=== PATIENT | male | born 1980 | race Caucasian/White ===

== ENCOUNTER 2016-08-05 19:36 | Emergency (ER) | payer OTHER ==
[2016-08-05 19:36] VITALS: BMI 41.3
== END 2016-08-05 20:15 | disposition left against medical advice (07) ==
LOC: ED 19:36
DX: Z53.21 Procedure and treatment not carried out due to patient leaving prior to being seen by health care provider (principal)

== ENCOUNTER 2016-08-07 15:53 | Emergency (ER) | payer OTHER ==
[2016-08-07 15:54] VITALS: BMI 41.3
[2016-08-07 16:17] VITALS: TEMP 97.7
[2016-08-07 16:50] LABS: AUTOMATED BASOPHIL 1.2 % (0-2); AUTOMATED EOSINOPHIL 2.3 % (0-5); AUTOMATED LYMPH 30.8 % (17-44); AUTOMATED MONOCYTE 7.6 % (3-10); AUTOMATED NEUTROPHIL 58.1 % (45-76); MPV 8.2 fL (7.4-10.4)
[2016-08-07 16:54] LABS: BLOOD UREA NITROGEN 12 MG/DL (9-20); CALCIUM 10.2 MG/DL (8.4-10.2); CALCULATED OSMOLALITY 270 MOs/Kg (270-290); CHLORIDE 103 mEq/L (98-107); GLUCOSE 111 MG/DL (70-99); SODIUM LEVEL 140 mEq/L (137-146); TOTAL PROTEIN 8.5 G/DL (6.3-8.2)
[2016-08-07 16:56] LABS: PARTIAL THROMB. TIME 32.1 SEC (22-35)
--- NOTE | 2016-08-07 18:29 | DIRPT ---
CLINICAL DATA: Chest pain, presumed cardiac EXAM: PORTABLE CHEST 1 VIEW COMPARISON: None. FINDINGS: Normal mediastinum and cardiac silhouette. Normal pulmonary vasculature. No evidence of effusion, infiltrate, or pneumothorax. No acute bony abnormality. IMPRESSION: No acute cardiopulmonary process. Electronically Signed By: Tomer Kaur M.D. On: 08/07/2016 18:13
--- NOTE | 2016-08-07 19:00 | EDPRACDOC ---
- General Information Chief Complaint: Chest Pain Stated Complaint: PRESSURE CP & INTO LT ARM Time Seen by Provider: 08/07/16 18:41 Information Source: Patient Mode of Arrival: Car Home Medications: Home Medications No Home Medications 08/07/16 Allergies/Adverse Reactions: Allergies Allergy/AdvReac Type Severity Reaction Status Date / Time No Known Allergies Allergy Verified 08/07/16 16:13 - History of Present Illness Onset: 1 day HPI: c/o intermittent mid sternal cp x 1 day with sob, nausea, dizzyness, shooting pain into left arm and jaw, worse with movement, better with rest. Pain is associated with anxiety and /or movement, non reproducible, described as sharp, lasts mins. Denies fever, vomiting, diarrhea, cough, sore throat, chnages in urine or BM. Med hx = HTN. + smoker, - Fam hx of cardiac dz. Chest Pain Location: Reports: Substernal Pain Radiation: Reports: Jaw (left), Arm (L) Symptoms Occur: Reports: Suddenly, With light exertion Cardiac Risk Factors: Reports: Smoker, Hypertension Cardiac History of: Reports: Similar Pain in Past, Stress Test ("around 4 yrs ago") PE Risk Factors: Reports: None Medications within 24 Hours: Reports: None Prehospital Care: Reports: None Pain Came On: Reports: Suddenly Pain Status: No Pain Pain Description: Reports: Sharp Pain Severity: None Pain Worsens With: Reports: Exertion, Movement Pain Improves With: Reports: Rest Associated Signs and Symptoms: Reports: SOB, Nausea ED Past Medical History - History Reviewed Yes Nurses notes reviewed and agree except as marked - Patient Medical History Cardiac History: Reports: Hypertension, Hypercholesterolemia Psychological History: Denies: Depression Surgical History: Reports: Cholecystectomy, Tonsillectomy/Adnoidectomy ( [facility] ONLY) - Social Medical History Smoking Status: Former smoker EDM Review of Systems - Review of Systems ROS Negative Except as Marked: Yes All systems reviewed and were negative except as marked Respiratory: Shortness of Breath Cardiovascular: Chest Pain - Physical Exam Constitutional: No apparent distress, Alert Oriented to: Time, Person, Place Last recorded Vital Signs: Last Vital Signs Temp 97.7 F 08/07/16 16:13 Pulse 83 08/07/16 16:45 Resp 18 08/07/16 16:16 BP 151/88 08/07/16 16:16 Pulse Ox 97 08/07/16 16:16 Oxygen Pulse Oxygen Saturation 97 O2 Device Room Air Oxygen Flow Rate Fraction of Inspired Oxygen ( FIO2) - HEENT Head: Normal Eye Exam: negative: Conjunctival Injection, Scleral Icterus Oropharynx: negative: Drooling TMJ: Normal Nose: No Symptoms Reported Neck: Normal - Respiratory/Cardiovascular Respiratory: Normal - CTA Cardiovascular: Normal - GI Auscultation: Normal Palpation: Normal Tenderness: Non tender - Musculoskeletal Back: Normal Extremities: Normal - Integumentary Skin: Normal - Neurologic Mood Description: Normal Thought: Coherent Perception: Normal ED Chest Pain Exam - Respiratory/Cardiovascular Respiratory: Normal - CTA Cardiovascular/Chest: Normal Radial Pulse: Normal Pedal Pulse: Normal Edema: negative: 1+, 2+, 3+, 4+, 5, 6 Chest Palpation: Normal - Action ASA given in the ED: No - Results 08/07/16 16:15 08/07/16 16:15 WBC 12.3 xk/uL (3.8-10.8) H 08/07/16 16:15 RBC 6.52 xM/uL (4.70-6.10) H 08/07/16 16:15 Hgb 18.7 g/dL (14.0-18.0) H 08/07/16 16:15 Hct 55.6 % (42-52) H 08/07/16 16:15 MCV 85 fL (80-94) 08/07/16 16:15 MCH 28.7 pg (27-32) 08/07/16 16:15 MCHC 33.7 g/dl (33-36) 08/07/16 16:15 RDW 14.1 % (11.5-14.5) 08/07/16 16:15 Plt Count 352 xk/uL (130-400) 08/07/16 16:15 MPV 8.2 fL (7.4-10.4) 08/07/16 16:15 Neut % (Auto) 58.1 % (45-76) 08/07/16 16:15 Lymph % (Auto) 30.8 % (17-44) 08/07/16 16:15 Robeson % (Auto) 7.6 % (3-10) 08/07/16 16:15 Eos % (Auto) 2.3 % (0-5) 08/07/16 16:15 Baso % (Auto) 1.2 % (0-2) 08/07/16 16:15 Absolute Neuts (auto) 7.13 xk/uL (1.7-8.2) 08/07/16 16:15 Absolute Lymphs (auto) 3.69 xk/uL (0.65-4.75) 08/07/16 16:15 PT 10.4 SEC (9.2-11.2) 08/07/16 16:15 INR 1.0 08/07/16 16:15 APTT 32.1 SEC (22-35) 08/07/16 16:15 Sodium 140 mEq/L (137-146) 08/07/16 16:15 Potassium 3.9 mEq/L (3.5-5.1) 08/07/16 16:15 Chloride 103 mEq/L (98-107) 08/07/16 16:15 Carbon Dioxide 23 mMOL/L (22-33) 08/07/16 16:15 Anion Gap 18 mEq/L (8-16) H 08/07/16 16:15 BUN 12 MG/DL (9-20) 08/07/16 16:15 Creatinine 0.90 MG/DL (0.66-1.25) 08/07/16 16:15 Estimated GFR (MDRD) > 60 mL/min (>=60) 08/07/16 16:15 Glucose 111 MG/DL (70-99) H 08/07/16 16:15 Calculated Osmolality 270 MOs/Kg (270-290) 08/07/16 16:15 Calcium 10.2 MG/DL (8.4-10.2) 08/07/16 16:15 Total Bilirubin 0.9 MG/DL (0.2-1.3) 08/07/16 16:15 AST 36 IU/L (17-59) 08/07/16 16:15 ALT 70 IU/L (21-72) 08/07/16 16:15 Alkaline Phosphatase 68 IU/L (38-126) 08/07/16 16:15 Troponin I 0.01 ng/mL (<.04) 08/07/16 16:15 Oia-H-Fpkhwfhdutb Pept 44 pg/mL (0-450) 08/07/16 16:15 Total Protein 8.5 G/DL (6.3-8.2) H 08/07/16 16:15 Albumin 4.8 G/DL (3.5-5.0) 08/07/16 16:15 Lab Results 08/07/16 08/07/16 08/07/16 16:15 16:15 16:15 WBC 12.3 H RBC 6.52 H Hgb 18.7 H Hct 55.6 H MCV 85 MCH 28.7 MCHC 33.7 RDW 14.1 Plt Count 352 MPV 8.2 Neut % (Auto) 58.1 Lymph % (Auto) 30.8 Robeson % (Auto) 7.6 Eos % (Auto) 2.3 Baso % (Auto) 1.2 Absolute Neuts (auto) 7.13 Absolute Lymphs (auto) 3.69 PT 10.4 INR 1.0 APTT 32.1 Sodium 140 Potassium 3.9 Chloride 103 Carbon Dioxide 23 Anion Gap 18 H BUN 12 Creatinine 0.90 Estimated GFR (MDRD) > 60 Glucose 111 H Calculated Osmolality 270 Calcium 10.2 Total Bilirubin 0.9 AST 36 ALT 70 Alkaline Phosphatase 68 Troponin I 0.01 Bhb-[id number]-Nyyamdlfsbr Pept 44 Total Protein 8.5 H Albumin 4.8 Laboratory Results - last 24 hr 08/07/16 08/07/16 08/07/16 16:15 16:15 16:15 WBC 12.3 H RBC 6.52 H Hgb 18.7 H Hct 55.6 H MCV 85 MCH 28.7 MCHC 33.7 RDW 14.1 Plt Count 352 MPV 8.2 Neut % (Auto) 58.1 Lymph % (Auto) 30.8 Robeson % (Auto) 7.6 Eos % (Auto) 2.3 Baso % (Auto) 1.2 Absolute Neuts (auto) 7.13 Absolute Lymphs (auto) 3.69 PT 10.4 INR 1.0 APTT 32.1 Sodium 140 Potassium 3.9 Chloride 103 Carbon Dioxide 23 Anion Gap 18 H BUN 12 Creatinine 0.90 Estimated GFR (MDRD) > 60 Glucose 111 H Calculated Osmolality 270 Calcium 10.2 Total Bilirubin 0.9 AST 36 ALT 70 Alkaline Phosphatase 68 Troponin I 0.01 Jym-B-Oxuwaqisaos Pept 44 Total Protein 8.5 H Albumin 4.8 Laboratory Results 08/07/16 16:15 08/07/16 16:15 - EKG EKG #1 EKG Time: 16:08 -: Yes EKG interpreted by me Rate: bpm: 91 Rhythm: NSR ST: Normal - Diagnostic Imaging Chest Image interpreted by: Radiologist EXAM: PORTABLE CHEST 1 VIEW COMPARISON: None. FINDINGS: Normal mediastinum and cardiac silhouette. Normal pulmonary vasculature. No evidence of effusion, infiltrate, or pneumothorax. No acute bony abnormality. IMPRESSION: No acute cardiopulmonary process. Electronically Signed By: Tomer Kaur M.D. On: 08/07/2016 18:13 Decision Time to Discharge: 19:28 - Departure Disposition: Home Condition: Stable Final Diagnosis: Atypical chest pain Instructions: Chest Pain (ED), Chest Wall Pain Education/Counseling Given To: Patient Education/Counseling Given Regarding: Diagnosis, Treatment, Prognosis, Follow Up Referrals: Shamir Osman MD [Primary Care Provider] - One Week Boris Pizano MD [Staff Physician] - One Week Additional Instructions: Follow up with primary care and cardiology for atypical chest pain. The name of a stunt person has been provided if you do not have one. Return to ED for any new or worsening symptoms.
[2016-08-07 20:03] VITALS: BP 132/72; PULSE 78
== END 2016-08-07 20:06 | disposition home or self-care (01) ==
LOC: ED 15:53
DX: R07.89 Other chest pain (principal)
CPT/HCPCS: 36415; 71010; 80053; 83880; 84484; 85025; 85610; 85730; 93005; 99284